=== PATIENT | male | born 1945 | race Hispanic/Latino ===

== ENCOUNTER 2018-06-15 17:47 | Emergency (ER) | payer OTHER ==
[2018-06-15 19:27] LABS: BASOPHILS % (AUTO) 0.5 % (0.0-5.0); EOSINOPHILS % (AUTO) 3.6 % (0.0-8.0); HEMATOCRIT 42.3 % (42-54); LYMPHOCYTES % (AUTO) 27.3 % (21.0-51.0); MEAN CORPUSCULAR HGB CONC 35.2 g/dL (32.0-36.0); MEAN CORPUSCULAR VOLUME 96.7 fL (79-99); MONOCYTES % (AUTO) 8.6 % (3.0-13.0); NUCLEATED RED BLOOD CELLS 0.1 % (0.0-0.19); PLATELET COUNT (AUTO) 88 K/uL (130-400); RED BLOOD CELL COUNT(AUTO) 4.38 MIL/uL (4.50-6.20); RED CELL DISTRIBUTION WIDTH 13.4 % (11.0-15.5); WHITE BLOOD COUNT (AUTO) 4.2 K/uL (4.8-10.8)
[2018-06-15 19:40] LABS: CREATININE 1.1 mg/dL (0.5-1.5)
[2018-06-15 19:45] LABS: ALBUMIN 3.6 g/dL (3.5-5.0); BILIRUBIN,TOTAL 0.4 mg/dL (0.2-1.0); TOTAL PROTEIN, SERUM 7.9 g/dL (6.0-8.3)
[2018-06-15] MEDS ORDERED: LABETALOL 20 MG/4 ML DISP.SYRIN IV ONE (21:32)
== END 2018-06-16 00:05 | disposition home or self-care (01) ==
LOC: EDH 17:47
DX: I10 Essential (primary) hypertension (principal)
CPT/HCPCS: 36415; 80053; 85025; 93005

== ENCOUNTER 2024-06-17 11:23 | Observation (INO) | payer OTHER, MEDICARE ==
[~2024-06-17] VITALS: Ht 165.1 cm; Wt 53.4 kg
[2024-06-17] MEDS: 0.9%NACL 1000ML 1,000 ML IV ONE (12:43)
[2024-06-17 12:54] LABS: BASOPHILS # (AUTO) 0.02 K/uL (0.00-0.20); BASOPHILS % (AUTO) 0.3 % (0.0-5.0); EOSINOPHILS # (AUTO) 0.03 K/uL (0.00-0.70); EOSINOPHILS % (AUTO) 0.4 % (0.0-8.0); IMMATURE GRANULOCYTE ABSOLUTE 0.03 K/uL (0-1); LYMPHOCYTES # (AUTO) 0.6 K/uL (1.0-4.8); LYMPHOCYTES % (AUTO) 7.6 % (21.0-51.0); MEAN CORPUSCULAR HEMOGLOBIN 31.3 pg (27.0-33.0); MEAN CORPUSCULAR HGB CONC 34.1 g/dL (32.0-36.0); MEAN CORPUSCULAR VOLUME 91.8 fL (79-99); MONOCYTES # (AUTO) 0.4 K/uL (0.1-1.0); NEUTROPHILS # (AUTO) 6.7 K/uL (1.8-7.7); NEUTROPHILS % (AUTO) 86.3 % (40.0-77.0); PLATELET COUNT (AUTO) 83 K/uL (130-400); RED BLOOD CELL COUNT(AUTO) 3.16 MIL/uL (4.50-6.20); RED CELL DISTRIBUTION WIDTH 15.1 % (11.0-15.5); WHITE BLOOD COUNT (AUTO) 7.8 K/uL (4.8-10.8)
[2024-06-17 13:08] LABS: CREATININE 1.1 mg/dL (0.5-1.3); INR 1.02 (0.85-1.15); POTASSIUM 3.8 mmol/L (3.5-5.1); PROTHROMBIN TIME 11.4 SEC (9.6-11.6)
[2024-06-17 13:09] LABS: PARTIAL THROMBOPLASTIN TIME 29.7 SEC (26.3-35.5)
[2024-06-17 13:14] LABS: ALBUMIN 2.6 g/dL (3.5-5.0); BILIRUBIN,DIRECT 0.4 mg/dL (0.0-0.3); BILIRUBIN,TOTAL 1.3 mg/dL (0.2-1.0); TOTAL PROTEIN, SERUM 8.6 g/dL (6.0-8.3)
--- NOTE | 2024-06-17 14:39 | NUR ---
FAILED BESIDE SWALLOW TEST WITH APPLE JUICE. EXPERIENCED PAINFUL SWALLOWING WITH LIQUID COMING BACK UP. NO COUGHING OR EMESIS NOTED. PROVIDER INFORMED.
--- NOTE | 2024-06-17 15:42 | ERN ---
General Chief Complaint: Difficulty Swallowing Stated Complaint: TROUBLE SWALLOWING Time Seen by MD: 12:01 History of Present Illness Initial Comments 78-year-old male came in for difficulty swallowing liquid or solid. Patient said that this has been going on for the past few days. Patient has extreme pain whenever he swallows. Patient otherwise has no concerns. Allergies: Coded Allergies: No Known Drug Allergies (Unverified Allergy, Unknown, 06/17/24) Past Medical History Past Medical History: CAD, Diabetes-Type II, Hypertension Past Surgical History: CABG Surgical History Other: EGD/ COLONSCOPY ROS Dictation CONSTITUTIONAL: Negative except for HPI HEAD/FACE: Negative except for HPI EENT: Negative except for HPI RESPIRATORY: Negative except for HPI GASTROINTESTINAL/ABDOMINAL: Negative except for HPI GENITOURINARY: Negative except for HPI MUSCULOSKELETAL: Negative except for HPI INTEGUMENTARY: Negative except for HPI NEUROLOGICAL/PSYCH: Negative except for HPI HEMATOLOGIC/LYMPHATIC: Negative except for HPI All Systems Negative, Except as noted above. 13 point review of systems assessed and all negative except for above. Physical Exam Physical Exam Dictation Vital Signs reviewed General Appearance: Alert, oriented x 3, no acute distress, well developed, nourished. Head and Face: non-traumatic. Eyes: PERRL, pink conjunctivas, eyelid no trauma, anterior chamber with arcus senilis. Ears: Pinnas intact and no signs of trauma or erythema ear canals clear and no discharge TM no erythema Nose: No discharge, no bleeding. Oropharynx: Mouth normal, tongue pink, pharynx clear,no erythema, tonsils no exudates, no abscesses noted, mucous membrane moist Neck: Supple, non-tender, no thyromegaly, no masses, no JVD, no bruits Breast:Deferred Chest:No tenderness, no crepitus, no paradoxical movement, no retractions Lungs:Clear, well-ventilated, symmetric, no rales, no wheezing, no rhonchi, no stridor, good breath sounds bilaterally Heart: Regular rate, regular rhythm, no murmur, no gallops Vascular: no peripheral edema, Abdomen: Soft, positive bowel sounds, nondistended, no guarding, nontender, no rebound, no masses no hepatomegaly, no splenomegaly, no Chavez's sign, no hernias. Rectal: Deferred Genital: Deferred Neurological: Normal speech, motor function intact, sensory function intact Musculoskeletal: Neck nontender, full range of motion, back nontender, full range of motion, Extremities: nontender, full range of motion Skin: Color pink, dry, no turgor, no rash, no lacerations, no abrasions, no contusions. Lymphatic: Deferred Results Laboratory and Microbiology Lab and Micro Result Laboratory Tests Test 06/17/24 12:41 White Blood Count 7.8 K/uL (4.8-10.8) Red Blood Count 3.16 MIL/uL (4.50-6.20) L Hemoglobin 9.9 g/dL (14.0-18.0) L Hematocrit 29.0 % (42-54) L Mean Corpuscular Volume 91.8 fL (79-99) Mean Corpuscular Hemoglobin 31.3 pg (27.0-33.0) Mean Corpuscular Hemoglobin Concent 34.1 g/dL (32.0-36.0) Red Cell Distribution Width 15.1 % (11.0-15.5) Platelet Count 83 K/uL (130-400) L Mean Platelet Volume 10.9 fL (7.5-10.5) H Immature Granulocyte % (Auto) 0.4 % (0-1) Neutrophils (%) (Auto) 86.3 % (40.0-77.0) H Lymphocytes (%) (Auto) 7.6 % (21.0-51.0) L Monocytes (%) (Auto) 5.0 % (3.0-13.0) Eosinophils (%) (Auto) 0.4 % (0.0-8.0) Basophils (%) (Auto) 0.3 % (0.0-5.0) Neutrophils # (Auto) 6.7 K/uL (1.8-7.7) Lymphocytes # (Auto) 0.6 K/uL (1.0-4.8) L Monocytes # (Auto) 0.4 K/uL (0.1-1.0) Eosinophils # (Auto) 0.03 K/uL (0.00-0.70) Basophils # (Auto) 0.02 K/uL (0.00-0.20) Absolute Immature Granulocyte (auto 0.03 K/uL (0-1) Nucleated Red Blood Cells 0.0 % (0.0-0.19) White Cell Morphology Comment See comments Prothrombin Time 11.4 SEC (9.6-11.6) Prothromb Time International Ratio 1.02 (0.85-1.15) Activated Partial Thromboplast Time 29.7 SEC (26.3-35.5) Sodium Level 139 mmol/L (136-145) Potassium Level 3.8 mmol/L (3.5-5.1) Chloride Level 104 mmol/L (101-111) Carbon Dioxide Level 26 mmol/L (21-32) Blood Urea Nitrogen 24 mg/dL (7-18) H Creatinine 1.1 mg/dL (0.5-1.3) Glomerular Filtration Rate Calc 70 mL/min (>90) Random Glucose 110 mg/dL (70-105) H Total Calcium 9.2 mg/dL (8.5-10.1) Total Bilirubin 1.3 mg/dL (0.2-1.0) H Direct Bilirubin 0.4 mg/dL (0.0-0.3) H Aspartate Amino Transf (AST/SGOT) 34 U/L (10-37) Alanine Aminotransferase (ALT/SGPT) 12 U/L (12-78) Alkaline Phosphatase 161 U/L (50-136) H Total Protein 8.6 g/dL (6.0-8.3) H Albumin 2.6 g/dL (3.5-5.0) L MDM MDM: Differential diagnosis: Rationale: Tests considered and ordered secondary to shared decision making include: Previous outside records reviewed: Old ER visits. Risk of complication and/or morbidity or mortality of patient management: None Medications-Per medication reconciliation Need for hospitalization: Patient does meet criteria for hospitalization. Need for emergency major/minor surgery: No There are no social concerns with this patient. Prescription drug management Prescriptions will include symptomatic care Patient's prior external medical records from other ER visits were reviewed by me as indicated. Prior testing and results from previous visits were reviewed. Prior tests were taken into account with medical decision making and resource utilization, independent historian/historians were used to obtain complete medical history. I independently interpreted the test that were performed, results were reviewed by me and considered findings on radiology if ordered. Medical management and examination interpretation discussions were had by me with other qualified healthcare professionals as indicated for the patient's care. ED Course Orders Procedure Category Date Status Time Cbc With Differential LAB 06/17/24 Complete 12:27 Basic Metabolic Panel LAB 06/17/24 Complete 12:27 Pt And Ptt LAB 06/17/24 Complete 12:27 Hepatic Function Panel LAB 06/17/24 Complete 12:27 0.9%Nacl 1000ml (Ns PHA 06/17/24 Complete 1000ml) 12:30 Admit Orders ADM 06/17/24 Transmitted 15:36 Current Medications Medications (Trade) Dose Ordered Sig/Suzette Route PRN Reason Start Time Stop Time Status Last Admin Dose Admin Sodium Chloride 1,000 ml @ 0 mls/hr ONCE ONCE IV 06/17/24 12:30 06/17/24 12:31 DC 06/17/24 12:43 Vital Signs Date Time Temp Pulse Resp B/P (MAP) Pulse Ox O2 Delivery O2 Flow Rate FiO2 06/17/24 14:42 75 16 143/61 99 Room Air* 0 21 06/17/24 12:18 73 14 118/40 100 Room Air* 0 21 06/17/24 11:49 98.4 79 16 138/62 98 Room Air 0 DX & DISP Disposition: Inpatient Departure Impression: Primary Impression: Dysphagia Condition: Stable Referrals: JAMEL HERNANDEZ MD (PCP) ROSA MARIA HELTON MD Jun 17, 2024 15:42
--- NOTE | 2024-06-17 15:43 | HP ---
[facility] HISTORY AND PHYSICAL Date of Service: Jun 17, 2024 Time of Service: 15:42 HISTORY OF PRESENT ILLNESS: [78-year-old male with past medical history of CAD, diabetes mellitus, hypertension and alcohol liver cirrhosis [facility] complaints of trouble swallowing. Patient stated that he had two EGDs in the past recent one is two months ago where they found varices and banded, and cauterization. Patient stated that he was a heavy drinker in stopped drinking two years ago. Lately he has been having trouble swallowing worse yesterday when he choked on his food. Today bedside swallow evaluation was done by nursing in the emergency department for which he is unable to swallow thin liquids and regurgitated as nurse noted. In the ED, his initial vital signs showed 98.4, pulse 79, respiratory rate 16, blood pressure 138/62,, 98% room air. Laboratory data reviewed, WBCs 7.8, HGB 9.9, HCT 29, PLT 83,, BUN , creatinine 1.1, GFR 70, random glucose 110, total bili 1.3, direct bili 0.4, alkaline phosphatase 161, total protein 8.6, albumin 2.6. He was evaluated in ED 17, alert and oriented x3, able to answer question and very knowledgeable on his health. Patient was referred to the hospitalist for further evaluation and management, we requested instructor ground services, Dr. Carmen we will perform EGD.] REVIEW OF SYSTEMS CONSTITUTIONAL: Denies fevers, chills, or night sweats. No unintentional weight loss reported. NEUROLOGICAL: Denies headache, amaurosis fugax, motor weakness, sensory deficit, vertigo/spinning sensation, gait abnormalities, or tremors. ENT: No hearing loss, otalgia, otorrhea, rhinitis, rhinorrhea, hoarseness, or sore throat. CARDIOVASCULAR: Denies any exertional angina, dyspnea on exertion, orthopnea, paroxysmal nocturnal dyspnea, palpitations, life-threatening arrhythmias, claudication. PULMONARY: Denies any shortness of breath, cough, phlegm/sputum, hemoptysis, pleuritic chest pain. SLEEP: Denies morning headaches, daytime somnolence or napping. Denies difficulty falling asleep, staying asleep, waking from sleep. Denies knowledge of snoring. GASTROINTESTINAL: Denies any type of dysphagia to either liquids or solids. Denies nausea, vomiting, pyrosis, early satiety, abdominal pain, diarrhea, constipation, or changes in stool consistency or caliber. Denies coffee-ground emesis, hematemesis, hematochezia, or melanotic stools. GENITOURINARY: Denies frequency, urgency, nocturia, hematuria or incontinence (Storage/Irritative symptoms.) Low urinary stream, straining to void, urinary intermittency or hesitancy, splitting of the voiding stream, terminal dribbling. ENDOCRINOLOGIC: Denies polyuria, polydipsia, polyphagia or heat/cold intolerances. HEMATOLOGIC: Denies thrombophilia/previous clots, or coagulopathy/bleeding disorders. ONCOLOGIC: Denies personal history of malignancy. DERMATOLOGIC: Denies rashes or pruritus. PSYCHIATRIC: Denies any suicidal or homicidal ideation. Denies hallucinations. PAST MEDICAL HISTORY: [ Alcoholic liver cirrhosis, CAD, hypertension, diabetes mellitus ] PAST SURGICAL HISTORY: [CABG x1 year ago done in [place], cataract surgery] PAST SOCIAL HISTORY: [ Ex heavy drinker, denies tobacco and illicit drug use ] FAMILY HISTORY: CAD ] Coded Allergies: No Known Drug Allergies (Unverified Allergy, Unknown, 06/17/24) PHYSICAL EXAM GENERAL APPEARANCE: The patient is awake, alert, and oriented, in no acute cardiopulmonary distress. NEUROLOGICAL: Cranial nerves II-XII grossly intact. Motor is 5/5 in bilateral upper and lower extremities proximal to distal. No sensory deficits. HEENT: Face is symmetric. Pupils are equal and reactive. Extraocular movements are intact. NECK: Supple. No JVD. No thyromegaly. No submental, submandibular, pre- /postauricular, occipital or supraclavicular lymphadenopathy. CHEST: Normal chest expansion. No Telemetry. LUNGS: Absence of any rales, rhonchi or any wheezing. CARDIOVASCULAR: Regular. S1 and S2 normal. No appreciable rubs, murmurs or gallops. ABDOMEN: Soft, nontender, and nondistended. There is no rebound, voluntary guarding, or rigidity. : Deferred. No Matias. EXTREMITIES: Non-edematous and not cyanotic. No clubbing. Good capillary refill. SKIN: No skin breakdown. Vital Sign (Last 24 Hours) 06/17/24 06/17/24 11:49 14:42 Temp 98.4 Pulse 75 Resp 16 B/P (MAP) 143/61 Pulse Ox 99 O2 Delivery Room Air* O2 Flow Rate 0 FiO2 21 LABS: Laboratory: Test 06/17/24 12:41 Range/Units White Blood Count 7.8 4.8-10.8 K/uL Red Blood Count 3.16 L 4.50-6.20 MIL/uL Hemoglobin 9.9 L 14.0-18.0 g/dL Hematocrit 29.0 L 42-54 % Mean Corpuscular Volume 91.8 79-99 fL Mean Corpuscular Hemoglobin 31.3 27.0-33.0 pg Mean Corpuscular Hemoglobin Concent 34.1 32.0-36.0 g/dL Red Cell Distribution Width 15.1 11.0-15.5 % Platelet Count 83 L 130-400 K/uL Mean Platelet Volume 10.9 H 7.5-10.5 fL Immature Granulocyte % (Auto) 0.4 0-1 % Neutrophils (%) (Auto) 86.3 H 40.0-77.0 % Lymphocytes (%) (Auto) 7.6 L 21.0-51.0 % Monocytes (%) (Auto) 5.0 3.0-13.0 % Eosinophils (%) (Auto) 0.4 0.0-8.0 % Basophils (%) (Auto) 0.3 0.0-5.0 % Neutrophils # (Auto) 6.7 1.8-7.7 K/uL Lymphocytes # (Auto) 0.6 L 1.0-4.8 K/uL Monocytes # (Auto) 0.4 0.1-1.0 K/uL Eosinophils # (Auto) 0.03 0.00-0.70 K/uL Basophils # (Auto) 0.02 0.00-0.20 K/uL Absolute Immature Granulocyte (auto 0.03 0-1 K/uL Nucleated Red Blood Cells 0.0 0.0-0.19 % White Cell Morphology Comment See comments Prothrombin Time 11.4 9.6-11.6 SEC Prothromb Time International Ratio 1.02 0.85-1.15 Activated Partial Thromboplast Time 29.7 26.3-35.5 SEC Sodium Level 139 136-145 mmol/L Potassium Level 3.8 3.5-5.1 mmol/L Chloride Level 104 101-111 mmol/L Carbon Dioxide Level 26 21-32 mmol/L Blood Urea Nitrogen 24 H 7-18 mg/dL Creatinine 1.1 0.5-1.3 mg/dL Glomerular Filtration Rate Calc 70 >90 mL/min Random Glucose 110 H 70-105 mg/dL Total Calcium 9.2 8.5-10.1 mg/dL Total Bilirubin 1.3 H 0.2-1.0 mg/dL Direct Bilirubin 0.4 H 0.0-0.3 mg/dL Aspartate Amino Transf (AST/SGOT) 34 10-37 U/L Alanine Aminotransferase (ALT/SGPT) 12 12-78 U/L Alkaline Phosphatase 161 H 50-136 U/L Total Protein 8.6 H 6.0-8.3 g/dL Albumin 2.6 L 3.5-5.0 g/dL DIAGNOSTICS / RADIOLOGY: [ ] ASSESSMENT: [Suspected dysphagia, POA Anemia, POA Elevated total bilirubin, POA Elevated direct bilirubin, POA Severe protein caloric malnutrition, POA History of liver cirrhosis History of esophageal varices banded and cauterized two months ago] PLAN: [Admit to medical surgical floor Patient will be kept NPO Chairman And Ceo consulted, plans for EGD in a.m. We will consult dietitian for severe protein caloric malnutrition We ordered complete abdominal ultrasound due to elevated LFTs Request home medications We will request anemia panel Patient will be on IV fluids with NS at 100 mL/hour Patient will receive folic acid IV and vitamin B12 GI prophylaxis with famotidine 20 mg IV b.i.d. VTE prophylaxis with SCDs We will repeat labs tomorrow Patient is a full code Case discussed with Dr. Fontenot, above plan was formulated ADVANCED CARE PLANNING 1. Which of the following were discussed? Hospice Care - Yes / No Therapeutic options - Yes / No Advance Directives - Yes / No Other discussions - 2. Discussed with who? Patient 3. Voluntary nature of this service was explained to the patient? Yes / No 4. Amount of time spent - ___20 mins___ 5. Reviewed by Physician? (if this service was performed by NPP) Yes / No ] ATTESTATION BY PHYSICIAN I have seen and examined the patient. I reviewed the documentation, medical decision making, and treatment plan as noted by the mid-level provider above. I agree with the findings and plan of care. HILDA FONTENOT MD, [facility] Jun 17, 2024 15:43
[2024-06-17] MEDS ORDERED: PoTASSium chloRIDE 20MEQ/100ML 100 ML IV PRN (16:00)
[2024-06-17] MEDS ORDERED: acetaMINOPHEN 325 MG/10.15ML UDCUP PO PRN ×2 (16:00)
[2024-06-17] MEDS ORDERED: GLUCAGON 1MG KIT 1 MG ML IM PRN (16:00)
[2024-06-17] MEDS ORDERED: DEXTROSE 50%-WATER 50 ML DISP.SYRIN IV PRN (16:00)
[2024-06-17] MEDS ORDERED: ondanSETRON 4MG INJ IVP PRN (16:00)
[2024-06-17] MEDS ORDERED: MAGNESIUM 2GM PREMIX 50ML 50 ML IV PRN (16:00)
--- NOTE | 2024-06-17 16:00 | NUR ---
GI CONSULT: PATIENT REPORT GIVEN TO DR PERRY. ORDERS RECIEVED
[2024-06-17] MEDS: 0.9%NACL 1000ML 1,000 ML IV SCH (16:27)
[2024-06-17 16:57] LABS: % IRON SATURATION 9.2 % (30-44)
[2024-06-17 17:29] VITALS: O2SAT 97
--- NOTE | 2024-06-17 17:35 | HMCIMG ---
US ABDOMINAL COMPLETE HISTORY: elevated LFT COMPARISON: None FINDINGS: There is coarse hepatic echogenicity with no focal lesions. There is multiple tiny gallbladder calculi with upper limits of normal wall thickness but no pericholecystic fluid. The common duct and pancreas are obscured by bowel gas. The kidneys are unremarkable in size and echogenicity. There is no identified nephrosis or nephrolithiasis. Both kidneys measure roughly 9.5 cm length. The spleen is mildly enlarged and there are splenic varices. The inferior vena cava and aorta are obscured by bowel gas. There is no small pleural effusions. IMPRESSION: Cirrhotic appearing liver with splenomegaly and small bilateral pleural effusions suggesting cirrhosis with portal hypertension. Limited study due to bowel gas. Cholelithiasis.
[2024-06-17 19:45] VITALS: BP 140/65; PULSE 79; RESP 18; TEMP 98.3
[2024-06-17 21:00] VITALS: O2SAT 97
[2024-06-17] MEDS: FAMOTIDINE 20MG VIAL IV SCH (21:01)
[2024-06-17 23:48] VITALS: BP 134/59; PULSE 70; RESP 18; TEMP 98.4
[2024-06-18] VITALS (24 sets, daily range): BP systolic 89–136; BP diastolic 44–63; PULSE 65–81; RESP 16–22; TEMP 97.4–98.2; O2SAT 100
[2024-06-18 04:04] LABS: HEMATOCRIT 25.4 % (42-54); MEAN CORPUSCULAR HEMOGLOBIN 31.1 pg (27.0-33.0); MEAN CORPUSCULAR HGB CONC 33.1 g/dL (32.0-36.0); MEAN CORPUSCULAR VOLUME 94.1 fL (79-99); PLATELET COUNT (AUTO) 66 K/uL (130-400)
[2024-06-18 04:20] LABS: POTASSIUM 3.6 mmol/L (3.5-5.1)
[2024-06-18] MEDS: FOLic ACID 5 MG/ML VIAL IV SCH (07:49)
[2024-06-18] MEDS ORDERED: proPOFol 10 MG/ML 20ML VIAL IV ONE ×2 (07:57→08:07)
[2024-06-18] MEDS ORDERED: LIDOCAINE HCL 1% 20 ML VIAL ONE (07:57)
[2024-06-18] MEDS ORDERED: SUCCINYLCHOLINE CHLORIDE 20 MG/ML 10 ML VIAL ONE (08:04)
[2024-06-18] MEDS ORDERED: ePHEDrine SULFate 50 MG/ML AMPULE ONE (08:13)
--- NOTE | 2024-06-18 10:57 | PN ---
[facility] PROGRESS NOTE Date of Service: Jun 18, 2024 Time of Service: 09:22 SUBJECTIVE: 06/18/24 - Patient was seen at bedside. Afebrile, HR 78, BP 130/63, RR 19 on 3L nasal cannula. Patient had EGD this morning. Results show food in the middle third of the esophagus and in the lower third esophagus, benign appearing esophageal stenosis which was dilated, inflammation in the form of erosions noted, mild tortuous distal esophagus, mucosal scarring in distal esophagus, due to previous banding, Grade II esophageal varices, portal hypertensive gastropathy, normal Z line and normal duodenal bulb and second portion of the duodenum. GI recommendations: clear liquids today, followed by pureed diet only tomorrow. Pantoprazole 40 mg PO QD, sucralfate suspension 1 gram PO TID, repeat upper EGD in one week for retreatment and additional dilation. Return to GI office after discharge. Patient tolerated procedure well. Remarkable labs: WBC 5, Hgb down from 9.9 to 8.4 possibly due to ongoing or recent blood loss, Hct 25, platelets 66K down from 83 suggestive of splenic sequestration from portal hypertension. Electrolytes WNL. BUN 20, creatinine 1, GFR 78, iron 22, TIBC 239, % sat 9.2 indicative of iron deficiency anemia, albumin 2.6 suggests chronic malnutrition and hepatic dysfunction. Patient has an extensive history of liver cirrhosis due to chronic alcohol abuse. Patient states he stopped drinking 2 years ago. Will have diet consult monitor intake to improve hypoalbuminemia and overall nutritional status. REVIEW OF SYSTEMS CONSTITUTIONAL: Denies fevers, chills, or night sweats. No unintentional weight loss reported. NEUROLOGICAL: Denies headache, amaurosis fugax, motor weakness, sensory deficit, vertigo/spinning sensation, gait abnormalities, or tremors. ENT: No hearing loss, otalgia, otorrhea, rhinitis, rhinorrhea, hoarseness, or sore throat. CARDIOVASCULAR: Denies any exertional angina, dyspnea on exertion, orthopnea, paroxysmal nocturnal dyspnea, palpitations, life-threatening arrhythmias, claudication. PULMONARY: Denies any shortness of breath, cough, phlegm/sputum, hemoptysis, pleuritic chest pain. SLEEP: Denies morning headaches, daytime somnolence or napping. Denies difficulty falling asleep, staying asleep, waking from sleep. Denies knowledge of snoring. GASTROINTESTINAL: Positive for dysphagia to either liquids or solids. Denies nausea, vomiting, pyrosis, early satiety, abdominal pain, diarrhea, constipation, or changes in stool consistency or caliber. Denies coffee-ground emesis, hematemesis, hematochezia, or melanotic stools. GENITOURINARY: Denies frequency, urgency, nocturia, hematuria or incontinence (Storage/Irritative symptoms.) Low urinary stream, straining to void, urinary intermittency or hesitancy, splitting of the voiding stream, terminal dribbling. ENDOCRINOLOGIC: Denies polyuria, polydipsia, polyphagia or heat/cold intolerances. HEMATOLOGIC: Denies thrombophilia/previous clots, or coagulopathy/bleeding disorders. ONCOLOGIC: Denies personal history of malignancy. DERMATOLOGIC: Denies rashes or pruritus. PSYCHIATRIC: Denies any suicidal or homicidal ideation. Denies hallucinations. PHYSICAL EXAM GENERAL APPEARANCE: The patient is awake, alert, and oriented, in no acute cardiopulmonary distress. NEUROLOGICAL: Cranial nerves II-XII grossly intact. Motor is 5/5 in bilateral upper and lower extremities proximal to distal. No sensory deficits. HEENT: Face is symmetric. Pupils are equal and reactive. Extraocular movements are intact. NECK: Supple. No JVD. No thyromegaly. No submental, submandibular, pre- /postauricular, occipital or supraclavicular lymphadenopathy. CHEST: Normal chest expansion. No Telemetry. LUNGS: Absence of any rales, rhonchi or any wheezing. CARDIOVASCULAR: Regular. S1 and S2 normal. No appreciable rubs, murmurs or gallops. ABDOMEN: Soft, nontender, and nondistended. There is no rebound, voluntary guarding, or rigidity. : Deferred. No Matias. EXTREMITIES: Non-edematous and not cyanotic. No clubbing. Good capillary refill. SKIN: No skin breakdown. Vital Signs (last 8hr) Date Time Temp Pulse Resp B/P (MAP) Pulse Ox O2 Delivery O2 Flow Rate FiO2 06/18/24 09:15 97.5 78 19 130/63 98 Nasal Cannula 3.0 06/18/24 09:10 77 20 115/53 98 Nasal Cannula 3.0 06/18/24 09:05 79 20 121/55 97 Nasal Cannula 3.0 06/18/24 09:00 77 19 110/49 98 Nasal Cannula 3.0 06/18/24 08:55 79 20 106/44 97 Nasal Cannula 3.0 06/18/24 08:50 78 19 100/47 98 Nasal Cannula 3.0 06/18/24 08:45 78 20 102/45 99 Nonrebreathing Mask 10.0 06/18/24 08:40 79 22 107/46 100 Nonrebreathing Mask 10.0 06/18/24 08:35 81 18 108/47 100 Nonrebreathing Mask 10.0 06/18/24 08:30 75 19 101/47 100 ETT 10.0 06/18/24 08:25 97.3 70 20 89/44 100 Nonrebreathing Mask 10.0 06/18/24 07:58 ET 7.5 06/18/24 07:58 ET 7.5 06/18/24 07:22 100 Room Air* 0 21 06/18/24 03:10 98.2 65 18 124/58 100 Room Air LABS: Laboratory: Test 06/18/24 08:48 06/18/24 03:42 06/17/24 12:41 Range/Units Whole Blood Glucose 79 70-110 MG/DL White Blood Count 5.0 # 4.8-10.8 K/uL Red Blood Count 2.70 L 4.50-6.20 MIL/uL Hemoglobin 8.4 L 14.0-18.0 g/dL Hematocrit 25.4 L 42-54 % Mean Corpuscular Volume 94.1 79-99 fL Mean Corpuscular Hemoglobin 31.1 27.0-33.0 pg Mean Corpuscular Hemoglobin Concent 33.1 32.0-36.0 g/dL Red Cell Distribution Width 15.0 11.0-15.5 % Platelet Count 66 L 130-400 K/uL Mean Platelet Volume 10.5 7.5-10.5 fL Nucleated Red Blood Cells 0.0 0.0-0.19 % Platelet Morphology Comment See comments Sodium Level 140 136-145 mmol/L Potassium Level 3.6 3.5-5.1 mmol/L Chloride Level 108 101-111 mmol/L Carbon Dioxide Level 26 21-32 mmol/L Blood Urea Nitrogen 20 H 7-18 mg/dL Creatinine 1.0 0.5-1.3 mg/dL Glomerular Filtration Rate Calc 78 >90 mL/min Random Glucose 73 70-105 mg/dL Total Calcium 8.6 8.5-10.1 mg/dL Immature Granulocyte % (Auto) 0.4 0-1 % Neutrophils (%) (Auto) 86.3 H 40.0-77.0 % Lymphocytes (%) (Auto) 7.6 L 21.0-51.0 % Monocytes (%) (Auto) 5.0 3.0-13.0 % Eosinophils (%) (Auto) 0.4 0.0-8.0 % Basophils (%) (Auto) 0.3 0.0-5.0 % Neutrophils # (Auto) 6.7 1.8-7.7 K/uL Lymphocytes # (Auto) 0.6 L 1.0-4.8 K/uL Monocytes # (Auto) 0.4 0.1-1.0 K/uL Eosinophils # (Auto) 0.03 0.00-0.70 K/uL Basophils # (Auto) 0.02 0.00-0.20 K/uL Absolute Immature Granulocyte (auto 0.03 0-1 K/uL White Cell Morphology Comment See comments Prothrombin Time 11.4 9.6-11.6 SEC Prothromb Time International Ratio 1.02 0.85-1.15 Activated Partial Thromboplast Time 29.7 26.3-35.5 SEC Iron Level 22 L 65-175 mcg/dL Total Iron Binding Capacity 239 L 250-450 mcg/dL Percent Iron Saturation 9.2 L 30-44 % Total Bilirubin 1.3 H 0.2-1.0 mg/dL Direct Bilirubin 0.4 H 0.0-0.3 mg/dL Aspartate Amino Transf (AST/SGOT) 34 10-37 U/L Alanine Aminotransferase (ALT/SGPT) 12 12-78 U/L Alkaline Phosphatase 161 H 50-136 U/L Total Protein 8.6 H 6.0-8.3 g/dL Albumin 2.6 L 3.5-5.0 g/dL Current Medications Medications (Trade) Dose Ordered Sig/Suzette Route PRN Reason Start Time Stop Time Status Last Admin Dose Admin Acetaminophen (TYLenol 325MG ELIXIR) 325 mg Q4H PRN PO TEMPERATURE GREATER THAN 101.5 06/17/24 16:00 07/17/24 15:59 Acetaminophen (TYLenol 325MG ELIXIR) 325 mg Q6H PRN PO MILD PAIN (1-3) 06/17/24 16:00 07/17/24 15:59 Dextrose (D50w) 50 ml AD PRN IV HYPOGLYCEMIA PROTOCOL 06/17/24 16:00 07/17/24 15:59 Famotidine (Pepcid 20mg Vial) 20 mg DAILY IV 06/17/24 21:00 07/17/24 20:59 06/17/24 21:01 20 MG Folic Acid (FolVITE 5 MG/ML VIAL) 1 mg DAILY IV 06/18/24 09:00 07/18/24 08:59 Glucagon (Glucagon 1mg Kit) 1 mg AD PRN IM HYPOGLYCEMIA PROTOCOL 06/17/24 16:00 07/17/24 15:59 Magnesium Sulfate 50 ml @ 0 mls/hr PROTOCOL PRN IV MAGNESIUM PROTOCOL 06/17/24 16:00 07/17/24 15:59 Ondansetron HCl (zoFRAN 4MG INJ) 4 mg Q6H PRN IVP NAUSEA/VOMITING 06/17/24 16:00 07/17/24 15:59 Potassium Chloride 100 ml @ 50 mls/hr AD PRN IV POTASSIUM PROTOCOL 06/17/24 16:00 07/17/24 15:59 Sodium Chloride 1,000 ml @ 100 mls/hr Q10H IV 06/17/24 16:00 07/17/24 15:59 06/18/24 02:16 100 MLS/HR DIAGNOSTICS / RADIOLOGY: [place] [address] IMAGING REPORT Signed PATIENT: JOHANN NELSNO MR#: [id number] : 1945 SEX: M AGE: 78 LOCATION: 3DH ORDER [id number] STATUS: ADM IN REPORT#: [id number] SERVICE 1542 REASON: elevated LFT ORDERING PHYSICIAN: JULIO BHATT PROCEDURE: ABDOMEN - US ABDOMINAL COMPLETE US ABDOMINAL COMPLETE HISTORY: elevated LFT COMPARISON: None FINDINGS: There is coarse hepatic echogenicity with no focal lesions. There is multiple tiny gallbladder calculi with upper limits of normal wall thickness but no pericholecystic fluid. The common duct and pancreas are obscured by bowel gas. The kidneys are unremarkable in size and echogenicity. There is no identified nephrosis or nephrolithiasis. Both kidneys measure roughly 9.5 cm length. The spleen is mildly enlarged and there are splenic varices. The inferior vena cava and aorta are obscured by bowel gas. There is no small pleural effusions. IMPRESSION: Cirrhotic appearing liver with splenomegaly and small bilateral pleural effusions suggesting cirrhosis with portal hypertension. Limited study due to bowel gas. Cholelithiasis. DICTATED BY: KAYDEN GALEAS DO DATE: 06/17/24 172 ELECTRONICALLY SIGNED BY: KAYDEN GALEAS DO DATE: 06/17/24 1735 ASSESSMENT: Suspected dysphagia, POA - EGD results - esophageal stenosis - dilated, Grade II esophageal varices, portal hypertensive gastropathy Anemia, POA Elevated total bilirubin, POA Elevated direct bilirubin, POA Severe protein caloric malnutrition, POA History of liver cirrhosis History of esophageal varices banded and cauterized two months ago PLAN: Diet - clear liquids today, advance to pureed foods only tomorrow Protonix 40 mg PO QD sulcrafate 10cc po TID follow up EGD in 1 week for retreatment Follow up with GI outpatient after discharge We will consult dietitian for severe protein caloric malnutrition Patient will be on IV fluids with NS at 100 mL/hour Patient will receive folic acid IV and vitamin B12 IV iron to correct for iron deficiency anemia GI prophylaxis with famotidine 20 mg IV b.i.d. VTE prophylaxis with SCDs We will repeat labs tomorrow Patient is a full code ADVANCED CARE PLANNING 1. Which of the following were discussed? Hospice Care - Yes / No Therapeutic options - Yes / No Advance Directives - Yes / No Other discussions - 2. Discussed with who? Patient 3. Voluntary nature of this service was explained to the patient? Yes / No 4. Amount of time spent - ___20 mins___ 5. Reviewed by Physician? (if this service was performed by NPP) Yes / No ] ATTESTATION BY PHYSICIAN I have seen and examined the patient. I reviewed the documentation, medical decision making, and treatment plan as noted by the resident provider above. I agree with the findings and plan of care. BhadriSavanna maguire MD, PRIYA N Jun 18, 2024 10:57
--- NOTE | 2024-06-18 15:20 | NUR ---
BEDSIDE SWALLOW EVAL. No s/s of aspiration. Recommend thin liquids (patient currently on strict clear liquid diet as per GI MD). [employer] reviewed results and recommendations with patient and nurse Cecilia. No family present at time of visit. [employer]CH[employer]IC educated patient on risks and consequences of aspiration. Speech therapy not warranted at this time. All questions answered. Addendum: 06/18/[address] ESAU PARIKH Amended: Links added.
[2024-06-18] MEDS: SUCRALFATE 1 GM/10 ML PO SCH (20:56)
[2024-06-18] MEDS: IRON sUCROse COMPLEX 300 MG in 0.9% NACL 250ML 250 ML IV ONE (21:33)
[2024-06-19] VITALS: BP 128/69; PULSE 67; RESP 16; TEMP 98
[2024-06-19 03:47] LABS: BASOPHILS # (AUTO) 0.02 K/uL (0.00-0.20); BASOPHILS % (AUTO) 0.6 % (0.0-5.0); EOSINOPHILS # (AUTO) 0.15 K/uL (0.00-0.70); EOSINOPHILS % (AUTO) 4.6 % (0.0-8.0); HEMATOCRIT 24.5 % (42-54); IMMATURE GRANULOCYTE ABSOLUTE 0.01 K/uL (0-1); LYMPHOCYTES # (AUTO) 0.5 K/uL (1.0-4.8); LYMPHOCYTES % (AUTO) 15.9 % (21.0-51.0); MEAN CORPUSCULAR HEMOGLOBIN 31.5 pg (27.0-33.0); MEAN CORPUSCULAR HGB CONC 34.3 g/dL (32.0-36.0); MEAN CORPUSCULAR VOLUME 91.8 fL (79-99); MONOCYTES # (AUTO) 0.3 K/uL (0.1-1.0); NEUTROPHILS # (AUTO) 2.3 K/uL (1.8-7.7); NEUTROPHILS % (AUTO) 70.6 % (40.0-77.0); PLATELET COUNT (AUTO) 68 K/uL (130-400); RED BLOOD CELL COUNT(AUTO) 2.67 MIL/uL (4.50-6.20); RED CELL DISTRIBUTION WIDTH 14.7 % (11.0-15.5); WHITE BLOOD COUNT (AUTO) 3.3 K/uL (4.8-10.8)
[2024-06-19 04:00] VITALS: BP 115/56; PULSE 65; RESP 16; TEMP 98
[2024-06-19 04:04] LABS: BILIRUBIN,TOTAL 0.8 mg/dL (0.2-1.0); CREATININE 0.9 mg/dL (0.5-1.3); POTASSIUM 3.6 mmol/L (3.5-5.1); TOTAL PROTEIN, SERUM 7.1 g/dL (6.0-8.3)
[2024-06-19 07:58] VITALS: BP 131/65; PULSE 65; RESP 17; TEMP 97.9
[2024-06-19 08:00] VITALS: O2SAT 100
[2024-06-19] MEDS: PANTOPrazole 40 MG TAB DR PO SCH (08:39)
[2024-06-19] MEDS ORDERED: PANT40TA54 PO (09:42)
--- NOTE | 2024-06-19 09:57 | DS ---
Discharge Summary Hospital Course Summary: Patient is a 78-year-old male with a past medical history of coronary artery disease, diabetes mellitus, hypertension and alcohol liver cirrhosis presented to the emergency department with complaints of trouble swallowing. Patient stated the head to previous EGDs past2 months ago where they found 2 varices which were banded and cauterized. Patient states he was a heavy drinker and stopped drinking2 years ago. Patient states he has been having difficulty swallowing which is worsened yesterday when he started choking on his food. A bedside swallow evaluation was done in the emergency department for which he was unable to swallow thin liquids and regurgitated. Patient was admitted for dysphagia and had gastroenterology consult where they performed an EGD. EGD results are attached below. Patient tolerated the procedure well. Patient was then placed on a clear liquid diet and advanced to a pureed diet and tolerated it well. Patient is hemodynamically stable and will be discharged home with instructions to remain on a pureed diet and follow up with Gastroenterology in 1 week. He has also been instructed to follow up with his primary care physician in 3-5 days. Concert Singer(s): Gastroenterology Procedure(s): [address] [address] IMAGING REPORT Signed PATIENT: JOHANN NELSON MR#: [id number] : 1945 SEX: M AGE: 78 LOCATION: [facility] ORDER [id number] STATUS: ADM IN REPORT#: [id number] SERVICE 1542 REASON: elevated LFT ORDERING PHYSICIAN: JULIO BHATT PROCEDURE: ABDOMEN - US ABDOMINAL COMPLETE US ABDOMINAL COMPLETE HISTORY: elevated LFT COMPARISON: None FINDINGS: There is coarse hepatic echogenicity with no focal lesions. There is multiple tiny gallbladder calculi with upper limits of normal wall thickness but no pericholecystic fluid. The common duct and pancreas are obscured by bowel gas. The kidneys are unremarkable in size and echogenicity. There is no identified nephrosis or nephrolithiasis. Both kidneys measure roughly 9.5 cm length. The spleen is mildly enlarged and there are splenic varices. The inferior vena cava and aorta are obscured by bowel gas. There is no small pleural effusions. IMPRESSION: Cirrhotic appearing liver with splenomegaly and small bilateral pleural effusions suggesting cirrhosis with portal hypertension. Limited study due to bowel gas. Cholelithiasis. DICTATED BY: KAYDEN GALEAS DO DATE: 06/17/24 1726 ELECTRONICALLY SIGNED BY: KADYEN GALEAS DO DATE: 06/17/24 1735 Upper GI endoscopy performed on 06/18/[address] Prakash Carpenter Procedure Impression: Food in the middle 3rd of the esophagus and in the lower 3rd of the esophagus. Removal was successful. Benign-appearing esophageal stenosis. Dilated. Esophageal mucosal changes were present, including erosions and erythema. Findings are suggestive of inflammation, due to impaction. Tortuous distal esophagus mild Mucosal scarring and distal esophagus, due to previous banding. Grade 2 esophageal varices Z-line regular, 39 cm from the incisors. Portal hypertensive gastropathy Normal duodenal bulb and 2nd portion of the duodenum The examination was otherwise normal Assessment/Plan: ASSESSMENT: Suspected dysphagia, POA - EGD results - esophageal stenosis - dilated, Grade II esophageal varices, portal hypertensive gastropathy Anemia, POA Elevated total bilirubin, POA Elevated direct bilirubin, POA Severe protein caloric malnutrition, POA History of liver cirrhosis History of esophageal varices banded and cauterized two months ago PLAN: Diet - clear liquids today, advance to pureed foods only tomorrow Protonix 40 mg PO QD sulcrafate 10cc po TID follow up EGD in 1 week for retreatment Follow up with GI outpatient after discharge We will consult dietitian for severe protein caloric malnutrition Patient will be on IV fluids with NS at 100 mL/hour Patient will receive folic acid IV and vitamin B12 IV iron to correct for iron deficiency anemia GI prophylaxis with famotidine 20 mg IV b.i.d. VTE prophylaxis with SCDs We will repeat labs tomorrow Patient is a full code ADVANCED CARE PLANNING 1. Which of the following were discussed? Hospice Care - Yes / No Therapeutic options - Yes / No Advance Directives - Yes / No Other discussions - 2. Discussed with who? Patient 3. Voluntary nature of this service was explained to the patient? Yes / No 4. Amount of time spent - ___20 mins___ 5. Reviewed by Physician? (if this service was performed by NPP) Yes / No ] Discharge Instructions: Follow up with PCP in 3-5 days Follow up with Gastroenterology in 1 week Pureed food diet only Protonix 40 mg p.o. daily Sucralfate suspension 1g by mouth 3 times a day New Medications: Pantoprazole Sodium (Pantoprazole Sodium) 40 Mg Tablet.dr 1 TAB PO DAILY for 30 Days, #30 TAB 0 Refills Sucralfate (Sucralfate) 1 Gram/10 Ml Oral.susp 1 GM PO TID, #30 ML Time spent arranging discharge: 1-30 minutes ATTESTATION BY PHYSICIAN I have seen and examined the patient. I reviewed the documentation, medical decision making, and treatment plan as noted by the resident provider above. I agree with the findings and plan of care. Savanna Sanchez MD, PRIYA N Jun 19, 2024 09:57
[2024-06-19] MEDS ORDERED: SUCR1ORA15 PO (09:58)
[2024-06-19 11:54] VITALS: BP 130/61; PULSE 85; RESP 20; TEMP 97.8
--- NOTE | 2024-06-19 15:25 | NUR ---
Patient d/c before RD could visit. Addendum: 06/19/24 at [address] Amended: Links added.
== END 2024-06-19 12:40 | disposition home or self-care (01) ==
LOC: EDH 11:23 → EDHIP 15:36 → 3DH 17:15
PROVIDERS: ADMIT Internal Medicine; ATTEND Internal Medicine
DX: K22.2 Esophageal obstruction (principal); E11.9 Type 2 diabetes mellitus without complications; I25.10 Atherosclerotic heart disease of native coronary artery without angina pectoris; K70.30 Alcoholic cirrhosis of liver without ascites; D50.9 Iron deficiency anemia, unspecified; I10 Essential (primary) hypertension; R79.89 Other specified abnormal findings of blood chemistry; Z82.49 Family history of ischemic heart disease and other diseases of the circulatory system; Z95.1 Presence of aortocoronary bypass graft; Z98.890 Other specified postprocedural states; Z79.899 Other long term (current) drug therapy
CPT/HCPCS: 96374; 99284; 83540; 83550; 80076; 80048 ×2; 85025 ×2; 85610; 85730; 36415 ×3; 76700; 96375 ×2; 85027; 82948; 92610; 43249; 43247; 96376; 80053; G0378 ×43; J3490 ×5; J0330; J2704 ×2; J1756; J7050; A4620; A4657; A7002; A4222; J7030; C1726

== ENCOUNTER 2025-05-27 22:20 | Emergency (ER) | payer MEDICARE ==
[~2025-05-27] VITALS: Ht 160 cm; Wt 60.3 kg
[~2025-05-27 22:20] MED LIST: PANT40TA54 PO; SUCR1ORA15 PO
--- NOTE | 2025-05-27 22:26 | NUR ---
UA CUP PROVIDED
--- NOTE | 2025-05-27 23:03 | ERN ---
ED Note History of Present Illness Stated Complaint: HIGH BLOOD PRESSURE Chief Complaint: Hypertension Time Seen by MD: 22:25 Dictation: This is a very pleasant 79-year-old male who presented to the emergency room expressing concerns about his blood pressure which was over 200 systolic. Patient stated that he checks his blood pressure twice a day as a routine it was extremely high and hence he came into the ER. He denied any chest pain shortness of breath. Denied any blurred vision facial droop slurred speech motor weakness or seizure activity. He has been in a lot of stress as his on 05/24/2025 Temperature 98.2 pulse 80 respirations 20 blood pressure 170/74 with a pulse oximetry of 99% on room air He had his chronic medical problems include diabetes mellitus, hypertension, coronary artery disease status post CABG 2 years ago Allergies: Coded Allergies: No Known Drug Allergies (Unverified Allergy, Unknown, 06/17/24) Home Meds Active Scripts Sucralfate (Sucralfate) 1 Gram/10 Ml Oral.susp, 1 GM PO TID, #30 ML Prov:JULIETTE WORKMAN 06/19/24 Pantoprazole Sodium (Pantoprazole Sodium) 40 Mg Tablet.dr, 1 TAB PO DAILY for 30 Days, #30 TAB 0 Refills Prov:JULIETTE WORKMAN 06/19/24 Past Medical History Past Medical History: CAD, Diabetes-Type II, Hypertension Surgical History: CABG Surgical History Other: EGD/ COLONSCOPY RN Note Reviewed/Agreed w/PFSH: Yes Review of System Dictation Constitutional: Negative for fever,chills, and weight loss Eyes: Negative for injury, pain,redness, and discharge ENT: Negative for injury,pain or swelling Cardiovascular: Negative for chest pain, palpitations, and edema positive for high blood pressure Respiratory: Negative for shortness of breath, cough, and wheezing, Abdomen/GI: Negative for abdominal pain, nausea, vomiting, diarrhea, and constipation Back: Negative for injury and pain : Negative for injury, bleeding and discharge MS/Extremity: Negative for injury and deformity Skin: Negative for rash, and discoloration Neuro: Negative for headache, weakness, numbness, tingling, and seizure Psych: Negative for suicide ideation, homicidal ideation, and hallucinations Initial Vital Sign VS Vital Signs Date Time Temp Pulse Resp B/P (MAP) Pulse Ox O2 Delivery O2 Flow Rate FiO2 05/27/25 22:22 98.2 80 20 170/74 99 Room Air 05/28/25 00:30 0 21 Physical Exam Dictation General: awake, alert, NAD Head/Face: Normocephalic, atraumatic Eyes: PERRL, EOMI, vision at baseline ENT: oral cavity clear, TMs clear, no signs of infection Neck: Trachea midline, supple, no nuchal rigidity Cardiovascular: RRR, normal S1/S2, No MRGs, no JVD Respiratory: Decreased breath sounds at the bases and dullness to percussion no respiratory distress, No rales or wheezes Abdomen: Soft, non-tender, non-distended, normal bowel sounds, no guarding or rebound. Skin: Warm, dry, normal turgor, no rash MS/Extremity: Pulses equal, no cyanosis, neurovascular intact, FROM Neuro: COAx4, GCS 15, strength 5/5, CN 2-12 intact, normal cerebellar exam, normal gait, Psych: Normal behavior, mood, and affect normal Extremities-trace edema without any palpable cords, Homans sign is negative Results (Laboratory/Radiology) Laboratory/Radiology Laboratory Tests Test 05/27/25 23:49 05/28/25 00:27 Urine Color LIGHT-YELLOW (YELLOW) Urine Appearance CLEAR (CLEAR) Urine pH 7.0 (5.0-8.0) Urine Specific [place] 1.010 (1.001-1.031) Urine Protein NEGATIVE mg/dL (NEGATIVE) Urine Glucose (UA) NEGATIVE mg/dL (NEGATIVE) Urine Ketones NEGATIVE mg/dL (NEGATIVE) Urine Occult Blood NEGATIVE (NEGATIVE) Urine Nitrate NEGATIVE (NEGATIVE) Urine Bilirubin NEGATIVE mg/dL (NEGATIVE) Urine Urobilinogen 0.2 mg/dL (0.2-1.0) Urine Leukocyte Esterase NEGATIVE Rick/uL White Blood Count 3.3 K/uL (4.8-10.8) L Red Blood Count 3.11 MIL/uL (4.50-6.20) L Hemoglobin 9.4 g/dL (14.0-18.0) L Hematocrit 29.5 % (42-54) L Mean Corpuscular Volume 94.9 fL (79-99) Mean Corpuscular Hemoglobin 30.2 pg (27.0-33.0) Mean Corpuscular Hemoglobin Concent 31.9 g/dL (32.0-36.0) L Red Cell Distribution Width 16.4 % (11.0-15.5) H Platelet Count 55 K/uL (130-400) L Mean Platelet Volume 12.8 fL (7.5-10.5) H Immature Granulocyte % (Auto) 0.3 % (0-1) Neutrophils (%) (Auto) 69.2 % (40.0-77.0) Lymphocytes (%) (Auto) 14.9 % (21.0-51.0) L Monocytes (%) (Auto) 10.7 % (3.0-13.0) Eosinophils (%) (Auto) 4.3 % (0.0-8.0) Basophils (%) (Auto) 0.6 % (0.0-5.0) Neutrophils # (Auto) 2.3 K/uL (1.8-7.7) Lymphocytes # (Auto) 0.5 K/uL (1.0-4.8) L Monocytes # (Auto) 0.4 K/uL (0.1-1.0) Eosinophils # (Auto) 0.14 K/uL (0.00-0.70) Basophils # (Auto) 0.02 K/uL (0.00-0.20) Absolute Immature Granulocyte (auto 0.01 K/uL (0-1) Nucleated Red Blood Cells 0.0 % (0.0-0.19) Sodium Level 135 mmol/L (136-145) L Potassium Level 4.1 mmol/L (3.5-5.1) Chloride Level 101 mmol/L (101-111) Carbon Dioxide Level 28 mmol/L (21-32) Blood Urea Nitrogen 21 mg/dL (7-18) H Creatinine 1.4 mg/dL (0.5-1.3) H Glomerular Filtration Rate Calc 52 mL/min (>90) Random Glucose 144 mg/dL (70-105) H Total Calcium 8.9 mg/dL (8.5-10.1) Total Creatine Kinase 65 U/L (21-232) Troponin I High Sensitivity 38 ng/L (4-75) Labs Reviewed?: Yes X-RAY Comment: REASON: CHEST PAIN ORDERING PHYSICIAN: KASSANDRA MENDIOLA MD PROCEDURE: CXR1VW - CHEST 1VW EXAM: CR Chest, 1 view CLINICAL HISTORY: Chest pain. COMPARISON: None provided. FINDINGS: Small to medium pleural effusions, mid to lower zone compressive atelectasis, and airspace disease bilaterally, more pronounced on the left side. Mild cardiomegaly and pulmonary vascular congestion. Status poststernotomy. No pneumothorax. The cardiomediastinal silhouette is within normal limits. No acute osseous abnormality. Mild osteopenia. Degenerative osseous changes. IMPRESSION: Small to medium pleural effusions, mid to lower zone compressive atelectasis, and airspace disease bilaterally, more pronounced on the left side. Mild cardiomegaly and pulmonary vascular congestion. Status poststernotomy. /[place] DICTATED BY: PRIMITIVO LO Jr., MD DATE: 05/28/2599 ELECTRONICALLY SIGNED BY: PRIMITIVO LO Jr., MD DATE: 05/28/2599 ED Course ED Course Orders Procedure Category Date Status Time Vital Signs Per CPOE 05/27/25 Transmitted Routine 22:23 Chest 1vw RAD 05/27/25 Resulted 22:23 12 Lead Ekg Tracing- EKG 05/27/25 Logged Technical 22:23 Oxygen By Nc/Pulse Ox CPOE 05/27/25 Transmitted 22:23 Maintain Iv CPOE 05/27/25 Transmitted 22:23 Iv Insertion CPOE 05/27/25 Transmitted 22:23 Cardiac Monitoring CPOE 05/27/25 Transmitted 22:23 Pulse Oximetry With CPOE 05/27/25 Transmitted Vs And Prn 22:23 Cbc With Differential LAB 05/27/25 In Process 22:23 Activity: Br W/Brp CPOE 05/27/25 Transmitted With Assist 22:23 Creatine Kinase, Total LAB 05/27/25 Complete 22:23 Troponin I High LAB 05/27/25 Complete Sensitivity 22:23 Urinalysis Profile LAB 05/27/25 Complete 22:23 Basic Metabolic Panel LAB 05/27/25 Complete 22:23 B-Type Natriuretic LAB 05/27/25 In Process Peptide 23:34 Furosemide 40mg Vial PHA 05/28/25 Complete (Lasix 40mg Vial) 01:00 Current Medications Medications (Trade) Dose Ordered Sig/Suzette Route PRN Reason Start Time Stop Time Status Last Admin Dose Admin Furosemide (LASix 40MG VIAL) 40 mg ONCE ONCE IVP 05/28/25 01:00 05/28/25 01:01 DC 05/28/25 00:59 Vital Signs Date Time Temp Pulse Resp B/P (MAP) Pulse Ox O2 Delivery O2 Flow Rate FiO2 05/28/25 01:10 78 18 160/66 99 Room Air* 0 21 05/28/25 00:30 83 18 150/66 99 Room Air* 0 21 05/27/25 22:22 98.2 80 20 170/74 99 Room Air Medical Decision Making MDM Differential diagnosis: Hypertensive urgency, uncontrolled hypertension, hypertensive emergency, accelerated hypertension, malignant hypertension This is a very pleasant 79-year-old male who presented to the emergency room expressing concerns about his blood pressure which was over 200 systolic. Patient stated that he checks his blood pressure twice a day as a routine it was extremely high and hence he came into the ER. He denied any chest pain shortness of breath. Denied any blurred vision facial droop slurred speech motor weakness or seizure activity. He has been in a lot of stress as his on 05/24/2025 Temperature 98.2 pulse 80 respirations 20 blood pressure 170/74 with a pulse oximetry of 99% on room air He had his chronic medical problems include diabetes mellitus, hypertension, coronary artery disease status post CABG 2 years ago 1:00 a.m. labs reviewed BNP 7 showed a sodium of 135 BUN and creatinine are 21 and 1.4 with a glucose of 144. Troponins are 38. Urinalysis is unremarkable. CBC reviewed Chest [id number] pleural effusions with cardiomegaly. 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 Patient felt very relieved and reassured. Rationale: Tests considered and ordered secondary to shared decision making include: Previous outside records reviewed: Old ER visits. Risk of complication and/or morbidity or mortality of patient management: None Medications-Per medication reconciliation Need for hospitalization: Patient does not meet criteria for hospitalization. Need for emergency major/minor surgery: No There are no social concerns with this patient. Prescription drug management Prescriptions will include symptomatic care Patient's prior external medical records from other ER visits were reviewed by me as indicated. Prior testing and results from previous visits were reviewed. Prior tests were taken into account with medical decision making and resource utilization, independent historian/historians were used to obtain complete medical history. I independently interpreted the test that were performed, results were reviewed by me and considered findings on radiology if ordered. Medical management and examination interpretation discussions were had by me with other qualified healthcare professionals as indicated for the patient's care. DX & DISP Disposition: Discharge Departure Impression: Primary Impression: Uncontrolled hypertension Additional Impressions: Bilateral pleural effusion, Coronary artery disease, H/O coronary artery bypass surgery Condition: Stable Additional Instructions: Patient and the caregiver have been informed of all the diagnostic tests and the imaging conducted during the today's visit to the emergency room and has verbalized understanding of the results I have personally reviewed and interpreted all diagnostic exams performed here in the ER today as well as the vital signs documented by the nursing staff. The patient is now being discharged to home and should follow up with the primary care physician or the specialist as directed by the ER staff. Referrals: SELF,REFERRAL (PCP) KASSANDRA MENDIOLA MD May 27, 2025 23:03
--- NOTE | 2025-05-28 00:01 | HMCIMG ---
EXAM: CR Chest, 1 view CLINICAL HISTORY: Chest pain. COMPARISON: None provided. FINDINGS: Small to medium pleural effusions, mid to lower zone compressive atelectasis, and airspace disease bilaterally, more pronounced on the left side. Mild cardiomegaly and pulmonary vascular congestion. Status poststernotomy. No pneumothorax. The cardiomediastinal silhouette is within normal limits. No acute osseous abnormality. Mild osteopenia. Degenerative osseous changes. IMPRESSION: Small to medium pleural effusions, mid to lower zone compressive atelectasis, and airspace disease bilaterally, more pronounced on the left side. Mild cardiomegaly and pulmonary vascular congestion. Status poststernotomy. /[place]
[2025-05-28 00:45] LABS: APPEARANCE,URINE CLEAR (CLEAR); GLUCOSE, URINE (UA) NEGATIVE (NEGATIVE); LEUKOCYTE ESTERASE ,URINE NEGATIVE Leu/uL (NEGATIVE); NITRATE,URINE NEGATIVE (NEGATIVE); OCCULT BLOOD,URINE NEGATIVE (NEGATIVE)
[2025-05-28 00:50] LABS: CREATININE 1.4 mg/dL (0.5-1.3); GLOMERULAR FILTR. RATE CALC 52.0 mL/min (>90); GLUCOSE,RANDOM 144.0 mg/dL (70-105); SODIUM SERUM 135.0 mmol/L (136-145); UREA NITROGEN, BLOOD 21.0 mg/dL (7-18)
[2025-05-28 00:51] LABS: ADD UA MICROSCOPIC NO
[2025-05-28 00:56] LABS: CREATINE KINASE, TOTAL 65.0 U/L (21-232)
[2025-05-28 01:22] LABS: IMMATURE GRANULOCYTE ABSOLUTE 0.01 K/uL (0-1); NUCLEATED RED BLOOD CELLS 0.0 % (0.0-0.19); PLATELET COUNT (AUTO) 55 K/uL (130-400); RED BLOOD CELL COUNT(AUTO) 3.11 MIL/uL (4.50-6.20); RED CELL DISTRIBUTION WIDTH 16.4 % (11.0-15.5); WHITE BLOOD COUNT (AUTO) 3.3 K/uL (4.8-10.8)
[2025-05-28 01:52] VITALS: BP 144/67; PULSE 75; RESP 18; TEMP 98.4; O2SAT 99
== END 2025-05-28 01:58 | disposition home or self-care (01) ==
LOC: EDH 22:20
DX: I10 Essential (primary) hypertension (principal); J90 Pleural effusion, not elsewhere classified; I25.10 Atherosclerotic heart disease of native coronary artery without angina pectoris; E11.9 Type 2 diabetes mellitus without complications; I11.9 Hypertensive heart disease without heart failure; Z79.899 Other long term (current) drug therapy; Z95.1 Presence of aortocoronary bypass graft
CPT/HCPCS: 99284; 71045; 82550; 84484; 80048; 83880; 85025; 81003; 36415; 96374; J1938; 99285